=== PATIENT | male | born 1940 | race African-American/Black ===

== ENCOUNTER 2018-05-27 10:29 | Emergency (ER) | payer OTHER, BC ==
[~2018-05-27] VITALS: Ht 170.2 cm; Wt 84.8 kg
[~2018-05-27 10:29] MED LIST: ASPIR 8181 MG PO; KLOR-CON 1010 MEQ PO; LISINOPRIL2.5 MG PO; MULTI VITAMIN1 EACH PO; NAPROSYN500 MG PO; ZOCOR20 MG PO
[2018-05-27] MEDS ORDERED: CIPRO500 MG PO (10:44)
[2018-05-27 11:39] LABS: URINE BLOOD 3+ (Negative); URINE CLARITY CLOUDY; URINE COLOR RED; URINE GLUCOSE-RANDOM* TRACE (Negative); URINE KETONES 1+ (Negative); URINE PROTEIN (DIPSTICK) 3+ (Negative)
[2018-05-27 11:40] LABS: URINE LEUKOCYTES-REFLEX 2+ (Negative); URINE NITRITE-REFLEX POSITIVE (Negative)
[2018-05-27 11:45] LABS: ICTOTEST (BILI CONFIRMATORY) Negative (Negative); URINE BILIRUBIN NEGATIVE (Negative)
[2018-05-27 11:49] LABS: CASTS None Seen /LPF (None Seen); CRYSTALS None Seen /LPF (None Seen); SQUAMOUS None Seen /LPF (0-3)
[2018-05-27 11:50] LABS: BACTERIA-REFLEX 1-9 Few /HPF (None Seen); URINE RBC >20 Many /HPF (0-2)
[2018-05-27 12:09] VITALS: BP 138/77
== END 2018-05-27 12:17 | disposition home or self-care (01) ==
LOC: ER 10:29
PROVIDERS: Physician Assistant
DX: R33.9 Retention of urine, unspecified (principal); I10 Essential (primary) hypertension; E78.00 Pure hypercholesterolemia, unspecified